=== PATIENT | female | born 1935 | race Caucasian/White ===

== ENCOUNTER → 2016-08-01 | Outpatient (CLI) | payer MEDICARE ==
[~2016-08-01] MED LIST: AMLO10 PO; AMLO5TAB2 PO; ATOR40TA16 PO; FLUT1INH INH; METO50TA PO
[2016-08-01 11:37] LABS: BICARBONATE 29.7 MEQ/L (21.0-32.0)
== END ==
LOC: CLAB 10:43
PROVIDERS: ATTEND Family Medicine
DX: N28.89 Other specified disorders of kidney and ureter (principal)
CPT/HCPCS: 36415; 80048

== ENCOUNTER 2017-12-11 10:17 | Emergency (ER) | payer MEDICARE ==
[~2017-12-11] VITALS: Ht 170.2 cm; Wt 86.4 kg
[~2017-12-11 10:17] MED LIST changes: -AMLO10 PO; -ATOR40TA16 PO
[2017-12-11 10:20] VITALS: BP 191/88; PULSE 73; RESP 18; TEMP 97.1; O2SAT 94
--- NOTE | 2017-12-11 10:43 | PD ---
HPI Chief Complaint: Pain: Acute or Chronic Time Seen by Provider: 10:34 Travel History International Travel<30 days: No Contact w/Intl Traveler<30days: No Traveled to known affect area: No History of Present Illness HPI This patient complains of pain in her right arm. Duration is 2-3 weeks. No injury. It is a nagging pain midway between shoulder and elbow. Patient has history of metastatic renal cell carcinoma not getting any treatment by her choice. PFSH Past Medical History Hx Anticoagulant Therapy: No Heart Rhythm Problems: No Cancer: Yes (KIDNEY) Cardiovascular Problems: Yes (HTN) High Cholesterol: Yes Chest Pain: No Congestive Heart Failure: No Diabetes: No Endocrine: No Genitourinary: No Hypertension: Yes Immune Disorder: No Musculoskeletal: No Neurologic: No Psychiatric: No Reproductive: No Respiratory: No ?: Not Menopausal: Yes Past Surgical History Abdominal Surgery: No Cardiac Surgery: No Ear Surgery: No Endocrine Surgery: No Eye Surgery: Yes (Cataract) Genitourinary Surgery: No Gynecologic Surgery: Yes (Hysterectomy) Hysterectomy: Yes Oral Surgery: No Thoracic Surgery: No Other Surgery: Yes Social History Alcohol Use: No Tobacco Use: No Substance Use: No Allergies-Medications (Allergen,Severity, Reaction): Coded Allergies: No Known Allergies (Verified Allergy, Unknown, 12/11/17) Reported Meds & Prescriptions Reported Meds & Active Scripts Active Metoprolol Tartrate 50 Mg Tab 50 Mg PO BID Amlodipine (Amlodipine Besylate) 5 Mg Tab 5 Mg PO BID Review of Systems General / Constitutional: No: Fever HENT: No: Headaches Cardiovascular: No: Chest Pain or Discomfort Respiratory: No: Cough Physical Exam Narrative RESPIRATORY: Respiratory effort unlabored, no retractions or use of accessory muscles. Breath sounds are clear and symmetric. Psych: Normal mood and affect. Normal insight and judgment. SKIN: Focused skin assessment reveals no rash or ulcers. Skin is warm and dry. Palpation shows no induration or nodules. Right arm: Patient has tenderness in the mid right humerus. There is no visible bruising or swelling. Neurovascularly intact Data Data Last Documented VS Vital Signs Date Time Temp Pulse Resp B/P (MAP) Pulse Ox O2 Delivery O2 Flow Rate FiO2 12/11/17 10:20 97.1 73 18 191/88 (122) 94 Orders Orders Humerus (Min 2vws) (12/11/17 ) MDM Medical Decision Making Medical Screen Exam Complete: Yes Emergency Medical Condition: Yes Medical Record Reviewed: Yes Differential Diagnosis Metastatic spread, fracture, contusion Narrative Course I have reviewed the patient's electronic medical record. Reviewed her last oncologist visit from a month ago I have reviewed her right humerus x-rays which are normal The patient was advised to follow up with their physician and return if they worsen. Etiology of her midhumerus pain is unclear but there are no exam or x-ray findings Diagnosis Primary Impression: Pain in right arm Additional Impression: Renal cell carcinoma Qualified Codes: C64.9 - Malignant neoplasm of unspecified kidney, except renal pelvis Additional Instructions: The patient was advised to follow up with their physician and return if they worsen. Med/Other Pt SpecificInfo: Other Disposition: 01 DISCHARGE HOME Condition: Stable Ed Allen MD Dec 11, 2017 10:42
--- NOTE | 2017-12-11 11:08 | RADRPT ---
EXAM DATE: 12/11/2017 11:01 AM EDT AGE/SEX: 82 years / Female INDICATIONS: Right arm pain, no trauma CLINICAL DATA: This is the patient's initial encounter. Patient reports that signs and symptoms have been present for 3 weeks and indicates a pain score of 7/10. MEDICAL/SURGICAL HISTORY: . Renal Carcinoma None. COMPARISON: No prior [facility] exams available for comparison. FINDINGS: Bony structures are intact and in normal alignment. Osseous density is normal. Soft tissues are unre markable. No radiopaque foreign bodies seen. CONCLUSION: No acute fracture. Electronically signed by: Miles Pisano MD 12/11/2017 11:07 AM EDT
== END 2017-12-11 11:44 | disposition home or self-care (01) ==
LOC: PHEFT 10:17
DX: M79.601 Pain in right arm (principal); C64.9 Malignant neoplasm of unspecified kidney, except renal pelvis; E78.00 Pure hypercholesterolemia, unspecified; I10 Essential (primary) hypertension
CPT/HCPCS: 73060; 99283